=== PATIENT | female | born 1995 | race Caucasian/White ===

== ENCOUNTER 2022-03-15 13:02 | Emergency (ER) | payer MEDICAID ==
[~2022-03-15] VITALS: Ht 160 cm; Wt 49.0 kg
[2022-03-15 13:08] VITALS: BP_SYST 146
[2022-03-15] MEDS ORDERED: NAPR-688 PO (15:24)
== END 2022-03-15 14:00 | disposition left against medical advice (07) ==
LOC: SED 13:02
DX: Z13.9 Encounter for screening, unspecified (principal); M79.661 Pain in right lower leg; M79.662 Pain in left lower leg; Z79.899 Other long term (current) drug therapy
CPT/HCPCS: 81025; 93005; 99283

== ENCOUNTER 2024-03-12 14:04 | Emergency (ER) | payer MEDICAID ==
[~2024-03-12] VITALS: Ht 160 cm; Wt 49.9 kg
[~2024-03-12 14:04] MED LIST: NAPR-688 PO
[2024-03-12 14:21] VITALS: BP_SYST 106; PULSE 85; RESP 16; TEMP 98; O2SAT 98
[2024-03-12] MEDS ORDERED: HYDR-3917 PO (16:35)
[2024-03-12 16:44] VITALS: BP_SYST 106; PULSE 85; RESP 16; TEMP 98; O2SAT 98
== END 2024-03-12 16:45 | disposition home or self-care (01) ==
LOC: SED 14:04
DX: L02.215 Cutaneous abscess of perineum (principal)
CPT/HCPCS: 99283